=== PATIENT | male | born 1990 | race African-American/Black ===

== ENCOUNTER 2018-03-07 09:17 | Emergency (ER) | payer SELFPAY ==
[~2018-03-07] VITALS: Ht 182.9 cm; Wt 76.3 kg
[2018-03-07 09:22] VITALS: TEMP 97.6
[2018-03-07 10:26] LABS: COLLECTION METHOD CLEAN CATCH
[2018-03-07 10:43] LABS: MUCOUS Present /lpf; PH 6 (5-8); SQUAMOUS EPITHELIAL None Seen /hpf; URINE APPEARANCE Hazy; URINE BACTERIA None Seen /hpf; URINE BILIRUBIN Negative (NEGATIVE); URINE BLOOD Negative (NEGATIVE); URINE COLOR Yellow; URINE GLUCOSE Negative (NEGATIVE); URINE KETONE Negative (NEGATIVE); URINE LEUKOCYTE ESTERASE 1+ (NEGATIVE); URINE NITRATE Negative (NEGATIVE); URINE PROTEIN(semi-quant) 2+ (NEGATIVE)
[2018-03-07] MEDS ORDERED: DOXYCYCLINE 10100 MG PO (10:57)
[2018-03-07 11:07] VITALS: BP 128/78; PULSE 60
== END 2018-03-07 11:07 | disposition home or self-care (01) ==
LOC: COL.ER 09:17
PROVIDERS: Emergency Medicine
DX: M54.5 Low back pain (principal); Z20.2 Contact with and (suspected) exposure to infections with a predominantly sexual mode of transmission
CPT/HCPCS: J0696; J1885

== ENCOUNTER → 2018-11-16 | Outpatient (REF) ==
[~2018-11-16] MED LIST: DOXYCYCLINE 10100 MG PO
== END ==
LOC: COL.LAB 03:31
DX: Z01.89 Encounter for other specified special examinations (principal)